=== PATIENT | female | born 1995 | race Caucasian/White ===

== ENCOUNTER 2016-07-30 17:51 | Emergency (ER) | payer OTHER ==
[~2016-07-30] VITALS: Ht 154.9 cm; Wt 49.9 kg
--- NOTE | 2016-07-30 18:12 | ED Lower Extremity ---
General Chief Complaint: Lower Extremity Stated Complaint: ROLLED LEFT ANKLE Nursing Triage Note: Approx 1615 was at pool working and rolled left foot in between mat and edge of pool. In wheelchair. 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 AND GOT FOOT CAUGHT BETWEEN A MAT AND THE EDGE OF THE POOL, AND TWISTED LEFT ANKLE OCCURRED TODAY AROUND 1615 NO OTHER INJURIES NO PARESTHESIAS OR MOTOR DEFICITS NO PRIOR INJURY TO THIS ANKLE Allergies and Home Medications Allergies Coded Allergies: No Known Drug Allergies (Unverified , 07/30/16) Home Medications No Active Prescriptions or Reported Meds Constitutional: no symptoms reported Musculoskeletal: see HPI Skin: no symptoms reported Psychiatric/Neurological: No Symptoms Reported Past Cqvggxk-Vrqepp-Fiukxv Hx Patient Social History Alcohol Use: Occasionally Uses Recreational Drug Use: No Smoking Status: Never a Smoker 2nd Hand Smoke Exposure: No Recent Foreign Travel: No Contact w/Someone Who Travel: No Recent Infectious Disease Expo: No Recent Hopitalizations: No Immunizations Up To Date Tetanus Booster (TDap): Less than 5yrs PED Vaccines UTD: Yes Seasonal Allergies Seasonal Allergies: No Surgeries HX Surgeries: No Respiratory Hx Respiratory Disorders: No Cardiovascular Hx Cardiac Disorders: No Neurological Hx Neurological Disorders: No Reproductive System : No Genitourinary Hx Genitourinary Disorders: No Gastrointestinal Hx Gastrointestinal Disorders: No Musculoskeletal Hx Musculoskeletal Disorders: No Endocrine Hx Endocrine Disorders: No HEENT HX ENT Disorders: No Cancer Hx Cancer: No Psychosocial Hx Psychiatric Problems: No Integumentary HX Skin/Integumentary Disorder: No Blood Transfusions Hx Blood Disorders: No Adverse Reaction to a Blood Tr: No Physical Exam Vital Signs Vital Sign - Last 12Hours 07/30/16 17:58 Pulse 72 Resp 18 B/P (MAP) 92/63 Pulse Ox 100 Capillary Refill : Less Than 3 Seconds General Appearance: WD/WN, no apparent distress Hips: bilateral hip normal inspection Legs: bilateral leg normal inspection Knees: bilateral knee normal inspection Ankles: left ankle other (LATERAL ASPECT OF LEFT ANKLE WITH MODERATE TENDERNESS AND SWELLING. DISTAL MOTOR/SENSORY/VASCULAR INTACT) Feet: left foot normal inspection Neurologic/Tendon: normal sensation, normal motor functions, normal tendon functions Neurologic/Psychiatric: supervisor bonding II-XII nml as tested, no motor/sensory deficits, alert, normal mood/affect, oriented x 3 Skin: normal color, warm/dry Splinting and Joint Reduction : Nolan wrap: Yes Splints: Air Stirrup [place] Progress/Results/Core Measures Results/Orders My Orders Orders - CUCO RODRÍGUEZ DO Ankle, Left, 3 Views (07/30/16 18:06) Nolan Bandage (07/30/16 18:45) Gel Ankle Brace (07/30/16 18:45) Vital Signs/I&O Vital Sign - Last 12Hours 07/30/16 17:58 Pulse 72 Resp 18 B/P (MAP) 92/63 Pulse Ox 100 Blood Pressure Mean: 73 Progress Note : Progress Note PT DECLINES PAIN MEDICATIONS--STATES "IT DOESN'T HURT THAT BAD" Diagnostic Imaging Comments XRAYS LEFT ANKLE--NO FX, SOFT TISSUE SWELLING. PER RADIOLOGIST REPORT @ 1851 Reviewed: Reviewed by Me Departure Impression Impression: Primary Impression: Left ankle sprain Disposition: HOME, SELF-CARE Condition: Stable Departure-Patient Inst. Referrals: NO,LOCAL PHYSICIAN (PCP) Primary Care Physician [facility] Patient Instructions: Ankle Sprain (DC), SPLINT CARE Add. Discharge Instructions: ICE TO AREA AT 20 MINUTE INTERVALS NOLAN WRAP AND SPLINT NEEDED FOR COMFORT TYLENOL AND MOTRIN NEEDED FOR PAIN FOLLOW UP WITH [facility] TOMORROW FOR FURTHER CARE All discharge instructions reviewed with patient and/or family. Voiced understanding. Scripts No Active Prescriptions or Reported Meds CUCO RODRÍGUEZ DO Jul 30, 2016 18:12
--- NOTE | 2016-07-30 18:47 | Diagnostic Imaging Report ---
INDICATION: Rolled left ankle today, pain. COMPARISON STUDIES: None. FINDINGS: Three views of the left ankle demonstrate soft tissue swelling. No fracture or dislocation is present. IMPRESSION: There is soft tissue swelling of the left ankle. Dictated by: Dictated on workstation # [id number]
[2016-07-30 19:05] VITALS: BP 95/62
== END 2016-07-30 19:05 | disposition home or self-care (01) ==
LOC: ER 17:53
DX: S93.402A Sprain of unspecified ligament of left ankle, initial encounter (principal); X50.0XXA Overexertion from strenuous movement or load, initial encounter; Y92.34 Swimming pool (public) as the place of occurrence of the external cause; Y99.0 Civilian activity done for income or pay
CPT/HCPCS: 73610; 99283

== ENCOUNTER 2019-08-20 21:59 | Emergency (ER) | payer BC, OTHER ==
[~2019-08-20] VITALS: Ht 152 cm; Wt 52.0 kg
[2019-08-20] MEDS ORDERED: diphenhydrAMINE 50 MG/ML INJ (BENADRYL) IV STA (22:22)
[2019-08-20] MEDS ORDERED: methylPREDNISolone 125 MG (Solu-MEDROL) VIAL IV STA (22:22)
[2019-08-20] MEDS ORDERED: FAMOTIDINE 20MG/2ML IV (PEPCID) IV STA (22:22)
[2019-08-20] MEDS ORDERED: LACTATED RINGERS 1,000 ML IV ONE ×2 (22:41→22:44)
--- NOTE | 2019-08-20 22:50 | ED Integumentary General ---
General Chief Complaint: Allergic Reaction Stated Complaint: RASH Source: patient History of Present Illness Date Seen by Provider: Aug 20, 2019 Time Seen by Provider: 22:12 Initial Comments PT ARRIVES VIA POV FROM HOME STATES SHE HAS HAD A VERY ITCHY RASH OVER HER ENTIRE BODY SINCE 0500 THIS AM NO SWELLING ANYWHERE NO DIFFICULTY BREATHING OR SWALLOWING NO HISTORY [place] [employer] AND A SANDWICH DURING THE DAY--MADE HERSELF, NO NEW FOODS LAST NIGHT, SHE ATE PIZZA, AND HAD "VODKA SPRITE", AND DRANK SOME "SELTZERS" AT HER BOYFRIEND'S HOUSE. HAS NOT TAKEN ANYTHING FOR SYMPTOMS PCP: [facility] Allergies and Home Medications Allergies Coded Allergies: No Known Drug Allergies (Unverified , 07/30/16) Home Medications Famotidine 40 Mg Tablet, 40 MG PO DAILY Prescribed by: CUCO RODRÍGUEZ on 08/20/192254 Prednisone 20 Mg Tab, 40 MG PO DAILY Prescribed by: CUCO RODRÍGUEZ on 08/20/192254 Patient Home Medication List Home Medication List Reviewed: Yes Review of Systems Review of Systems Constitutional: no symptoms reported EENTM: no symptoms reported; No hoarseness, No throat pain, No throat swelling Respiratory: no symptoms reported; No short of breath, No wheezing Cardiovascular: no symptoms reported Gastrointestinal: no symptoms reported; No nausea Genitourinary: no symptoms reported : No (LMP 2-3 MONTHS AGO, NO CONTROL. NORMAL FOR HER. NOT SEXUALLY ACTIVE) Musculoskeletal: no symptoms reported Skin: see HPI, pruritus, rash Psychiatric/Neurological: No Symptoms Reported Endocrine: No Symptoms Reported Hematologic/Lymphatic: No Symptoms Reported Past Cqdlbqd-Iqvwag-Cjhwcj Hx Past Med/Social Hx: Reviewed and Corrections made Patient Social History Alcohol Use: Occasionally Uses 2nd Hand Smoke Exposure: No Recent Foreign Travel: No Contact w/Someone Who Travel: No Recent Hopitalizations: No Immunizations Up To Date Tetanus Booster (TDap): Less than 5yrs PED Vaccines UTD: Yes Seasonal Allergies Seasonal Allergies: No Past Medical History Surgeries: No Respiratory: No Cardiac: No Neurological: No : No Reproductive Disorders: Yes (IRREGULAR PERIODS, FREQUENTLY GOES MONTHS WITHOUT A PERIOD) Female Reproductive Disorders: Menstrual Problems Genitourinary: No Gastrointestinal: No Musculoskeletal: No Endocrine: No HEENT: No Cancer: No Psychosocial: No Integumentary: No Blood Disorders: No Adverse Reaction/Blood Tranf: No Physical Exam Vital Signs Vital Signs - First Documented 08/20/19 08/21/19 22:05 00:27 Temp 37.0 Pulse 94 Resp 20 B/P (MAP) 99/76 (84) Pulse Ox 100 O2 Delivery Room Air Capillary Refill : General Appearance: WD/WN, no apparent distress HEENT: PERRL/EOMI, normal ENT inspection, TMs normal, pharynx normal, other (NO SWELLING TO LIPS/TONGUE/UVULA/POSTERIOR PHARYNX. NO HOARSENESS) Neck: normal inspection Cardiovascular: regular rate, rhythm, no murmur Respiratory: normal breath sounds, no respiratory distress, no accessory muscle use; No stridor Gastrointestinal: soft Back: normal inspection Extremities: normal inspection, no pedal edema, normal capillary refill Neurologic/Psychiatric: commonwealth attorney II-XII nml as tested, no motor/sensory deficits, alert, normal mood/affect, oriented x 3 Skin: normal color, warm/dry, other (DIFFUSE URTICARIA OVER ENTIRE BODY INCLUDING FACE, SCALP, PALMS AND SOLES. ) Progress/Results/Core Measures Results/Orders My Orders Orders - CUCO RODRÍGUEZ DO Ed Iv/Invasive Line Start (08/20/19 22:22) Famotidine Injection (Pepcid Injection) (08/20/19 22:22) Diphenhydramine Injection (Benadryl Inje (08/20/19 22:22) Methylprednisolone Sod Succ (Solu-Medrol (08/20/19 22:22) Lactated Ringers (Lr 1000 Ml Iv Solution (08/20/19 22:41) Ed Iv/Invasive Line Start (08/20/19 22:44) Lactated Ringers (Lr 1000 Ml Iv Solution (08/20/19 22:44) Vital Signs/I&O 08/20/19 08/21/19 22:05 00:27 Temp 37.0 36.8 Pulse 94 82 Resp 20 14 B/P (MAP) 99/76 (84) 155/99 Pulse Ox 100 98 O2 Delivery Room Air Progress Progress Note : Progress Note GIVEN IV FLUIDS, PEPCID, BENADRYL AND SOLU-MEDROL WITH IMPROVEMENT IN SYMPTOMS--RASH FADING AND ITCHING RESOLVED. Departure Impression Primary Impression: Hives of unknown origin Disposition: HOME, SELF-CARE Condition: Improved Departure-Patient Inst. Referrals: ANDREW ESPINOSA MD Patient Instructions: Hives (DC) Add. Discharge Instructions: LOTS OF WATER KEEP DIARY OF EVERYTHING INGESTED IN LAST 24 HOURS AVOID ANY NEW FOODS, DRINKS, PRODUCTS, ETC. TAKE BENADRYL 50 MG EVERY 4 HOURS NEEDED RETURN TO ER IF YOU DEVELOP SWELLING OF LIPS, THROAT OR TONGUE, OR IF YOU HAVE DIFFICULTY BREATHING FOLLOW UP WITH [facility] IF NO IMPROVEMENT IN 1-2 DAYS All discharge instructions reviewed with patient and/or family. Voiced understanding. Scripts Famotidine (Pepcid) 40 Mg Tablet 40 MG PO DAILY, #10 TAB Prov: CUCO RODRÍGUEZ DO 08/20/19 Prednisone (Prednisone) 20 Mg Tab 40 MG PO DAILY, #6 TAB 0 Refills Prov: CUCO RODRÍGUEZ DO 08/20/19 CUCO RODRÍGUEZ DO Aug 20, 2019 22:50
[2019-08-20] MEDS ORDERED: PRD20T PO (22:55)
[2019-08-20] MEDS ORDERED: FAMO40TA72 PO (22:55)
[2019-08-21 00:27] VITALS: BP 155/99
== END 2019-08-21 00:23 | disposition home or self-care (01) ==
LOC: EDUNIT# 21:59 → ER 22:00
DX: L50.9 Urticaria, unspecified (principal)
CPT/HCPCS: 99283